=== PATIENT | male | born 1955 | race Caucasian/White ===

== ENCOUNTER → 2018-04-26 08:15 | Outpatient (CLI) | payer BC | END | disposition home or self-care (01) | LOC: D.RT 08:00 | DX: R06.00 Dyspnea, unspecified (principal) ==

== ENCOUNTER → 2018-09-13 08:47 | Outpatient (CLI) | payer BC ==
[2018-09-16 15:12] LABS: IMMUNOGLOBULIN E 54 IU/mL (0-100)
== END | disposition home or self-care (01) ==
LOC: D.RAD 08:47
PROVIDERS: Internal Medicine Pulmonary Disease
DX: J45.909 Unspecified asthma, uncomplicated (principal); J44.9 Chronic obstructive pulmonary disease, unspecified